=== PATIENT | female | born 1935 | race Caucasian/White ===

== ENCOUNTER 2024-03-13 12:21 | Day surgery (SDC) | payer MEDICARE, BC ==
[~2024-03-13] VITALS: Ht 162.6 cm; Wt 63.6 kg
[~2024-03-13 12:21] MED LIST: ONDA4TAB6 PO
[2024-03-13] MEDS ORDERED: flumazenil 0.1 mg/ml inj. 10mL vial IV ONE (12:52)
[2024-03-13] MEDS ORDERED: fluoroscein sod 10% (100mg/ml) 5ml vial ONE (12:52)
[2024-03-13 12:58] VITALS: BP 64/49; PULSE 81; RESP 14
[2024-03-13] MEDS ORDERED: midazolam 1 mg/ML 2ml injection ONE (13:01)
[2024-03-13] MEDS ORDERED: propofol inj 20 ML IV ONE (13:03)
[2024-03-13] MEDS ORDERED: LIDOcaine 2% (20mg/ml) 5ml vial ONE (13:03)
[2024-03-13] MEDS ORDERED: LOSA100T58 PO (13:10)
[2024-03-13] MEDS ORDERED: CHLO25TA10 PO (13:10)
[2024-03-13] MEDS ORDERED: DICY10CA88 PO (13:10)
[2024-03-13] MEDS ORDERED: CEPH-585 PO (13:10)
[2024-03-13] MEDS ORDERED: PANT40TA54 PO (13:10)
[2024-03-13] MEDS ORDERED: SUCR1TAB PO (13:10)
[2024-03-13] MEDS ORDERED: FOLI1TAB27 PO (13:10)
[2024-03-13] MEDS ORDERED: LEVO75TA7 PO (13:10)
[2024-03-13 13:17] VITALS: BP 92/51; PULSE 69; RESP 16; O2SAT 98
[2024-03-13 13:27] VITALS: BP 101/57; PULSE 66; RESP 16; O2SAT 97
[2024-03-13 13:37] VITALS: BP 102/61; PULSE 68; RESP 17; O2SAT 98
[2024-03-13 13:47] VITALS: BP 100/60; PULSE 66; RESP 16; O2SAT 99
== END 2024-03-13 13:50 | disposition home or self-care (01) ==
LOC: GI LAB 12:21
PROVIDERS: ATTEND Internal Medicine Gastroenterology
DX: R10.30 Lower abdominal pain, unspecified (principal); K63.0 Abscess of intestine; K57.30 Diverticulosis of large intestine without perforation or abscess without bleeding; I10 Essential (primary) hypertension; E11.9 Type 2 diabetes mellitus without complications
CPT/HCPCS: 45330; A4620; J2001; J2250; J2704; J3490; J7030; Z7512

== ENCOUNTER 2024-04-27 13:50 | Outpatient (CLI) | payer MEDICARE, BC ==
[~2024-04-27 13:50] MED LIST changes: +CEPH-585 PO; +CHLO25TA10 PO; +DICY10CA88 PO; +FOLI1TAB27 PO; +LEVO75TA7 PO; +LOSA100T58 PO; +PANT40TA54 PO; +SUCR1TAB PO
== END 2024-04-27 23:59 | disposition home or self-care (01) ==
LOC: RAD 13:50
PROVIDERS: ATTEND Internal Medicine
DX: M51.36 Other intervertebral disc degeneration, lumbar region (principal); R16.1 Splenomegaly, not elsewhere classified; R18.8 Other ascites; R10.31 Right lower quadrant pain; M47.816 Spondylosis without myelopathy or radiculopathy, lumbar region; Z90.49 Acquired absence of other specified parts of digestive tract
CPT/HCPCS: 74176